=== PATIENT | male | born 1975 | race Hispanic/Latino ===

== ENCOUNTER 2017-06-14 03:01 | Emergency (ER) | payer SELFPAY | END 2017-06-14 04:00 | disposition home or self-care (01) | LOC: ERS 03:01 | DX: H60.501 Unspecified acute noninfective otitis externa, right ear (principal); F32.9 Major depressive disorder, single episode, unspecified; Z87.891 Personal history of nicotine dependence | CPT/HCPCS: 99282 ==

== ENCOUNTER 2017-07-19 14:17 | Emergency (ER) | payer SELFPAY ==
[2017-07-19 15:17] LABS: Bilirubin Moderate (Negative); Blood, Urine Negative (Negative); Glucose, Urine (Dipstick) Negative (Negative); Ketone, Urine 40 mg/dL (Negative); Nitrite Negative (Negative); Protein, Urine (Dipstick) 30 mg/dL (Neg-Trace); Urobilinogen 0.2 mg/dL (0.2-1.0)
[2017-07-19 15:19] LABS: Bacteria/HPF None Seen HPF (None Seen); Hyaline Casts/LPF 4-6 HYALINE CAST LPF (0-3 Hyaline); Squamous Epithelial 0-3 HPF (0-3)
[2017-07-19 15:29] LABS: Methamphetamine Not Detected (NotDetected)
[2017-07-19 15:30] LABS: Amphetamine Not Detected (NotDetected); Methadone Not Detected (NotDetected)
== END 2017-07-19 15:19 | disposition left against medical advice (07) ==
LOC: ERS 14:17
DX: Z53.21 Procedure and treatment not carried out due to patient leaving prior to being seen by health care provider (principal)
CPT/HCPCS: 80306; 81003; 81015; 99281

== ENCOUNTER 2018-03-29 00:23 | Emergency (ER) | payer BC, SELFPAY ==
[2018-03-29] MEDS ORDERED: Amoxicillin/Potassium Clav 875 MG TAB PO SCH (01:15)
[2018-03-29] MEDS ORDERED: Adacel (T-DAP) 0.5 ML VIAL ONE (02:25)
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
== END 2018-03-29 02:49 | disposition home or self-care (01) ==
LOC: ERS 00:23
DX: S09.90XA Unspecified injury of head, initial encounter (principal); S61.213A Laceration without foreign body of left middle finger without damage to nail, initial encounter; F32.9 Major depressive disorder, single episode, unspecified; Z87.891 Personal history of nicotine dependence; W21.89XA Striking against or struck by other sports equipment, initial encounter
CPT/HCPCS: 70450; 90471; 90715

== ENCOUNTER 2018-10-22 18:45 | Emergency (ER) | payer SELFPAY | END 2018-10-22 19:17 | disposition home or self-care (01) | LOC: ERS 18:45 | DX: N50.9 Disorder of male genital organs, unspecified (principal); F32.9 Major depressive disorder, single episode, unspecified; Z87.891 Personal history of nicotine dependence | CPT/HCPCS: 99283 ==

== ENCOUNTER 2019-03-26 21:39 | Emergency (ER) | payer SELFPAY ==
[2019-03-26] MEDS ORDERED: Ondansetron ODT 4 MG TAB ONE (22:18)
[2019-03-26] MEDS ORDERED: Ketorolac Tromethamine 30 MG/ML VIAL ONE (22:18)
--- NOTE | 2019-03-26 22:47 | CT ---
CT BRAIN WITHOUT CONTRAST; HISTORY: Headache. Dizziness. COMPARISON: 03/29/2018 FINDINGS: No evidence of infarct, hemorrhage, midline shift, or abnormal extraaxial fluid collections is seen. Ventricular size is stable. Basilar cisterns are patent. The bony calvarium is intact. Focal area s of lucency within the calvarium are stable, likely venous lakes. IMPRESSION: No CT evidence of acute intracranial process. Stable examination since 03/29/2018. POS: [facility]
[2019-03-26 22:59] LABS: #Basophils 0.1 thou/uL (0.0-0.2); #Eosinphils 0.2 thou/uL (0.0-0.7); #Lymphocytes 2.8 thou/uL (1.20-3.40); #Monocytes 0.5 thou/uL (0.11-0.59); #Neutrophils 4.5 thou/uL (1.40-6.50); %Basophils 0.6 % (0.0-1.0); %Eosinophils 2.8 % (0.0-10.0); %Monocytes 5.7 % (0.0-10.0); Hemoglobin 16.9 g/dL (14.0-18.0); Mean Corpuscular HGB CONC 33.6 g/dL (32.0-36.0); Mean Corpuscular Hemoglobin 31.9 pg (27.0-31.0); Mean Platelet Volume 12.7 fL (7.4-10.4); Platelet Count 153 thou/uL (130-400); Platelet Morphology Comment Appears Adequate; RBC Distribution Width 11.1 % (11.5-14.5); RBC Morphology Normal; White Blood Cell (WBC) Count 8.1 thou/uL (4.8-10.8)
[2019-03-26 23:00] LABS: ALT (SGPT) 20 U/L (8-55); AST (SGOT) 22 U/L (5-34); Albumin 4.5 g/dL (3.5-5.0); Alkaline Phosphatase 70 U/L (40-150); Anion Gap 13 mmol/L (10-20); BUN (Urea Nitrogen) 17 mg/dL (8.9-20.6); Bilirubin, Total 0.3 mg/dL (0.2-1.2); Calc. Creatinine Clearance 0 mL/min (70-130); Carbon Dioxide 24 mmol/L (22-29); Chloride 103 mmol/L (98-107); Estimated GFR-MDRD 83; Globulin 3.1 g/dL (2.4-3.5); Glucose 113 mg/dL (70-105); Potassium 3.9 mmol/L (3.5-5.1); Protein, Total 7.6 g/dL (6.0-8.3); Sodium 136 mmol/L (136-145)
== END 2019-03-27 01:19 | disposition home or self-care (01) ==
LOC: ERS 21:39
DX: R51 Headache (principal); F32.9 Major depressive disorder, single episode, unspecified; Z87.891 Personal history of nicotine dependence
CPT/HCPCS: 36415; 70450; 80053; 85025; 96372; J1885; Q0162

== ENCOUNTER 2020-12-08 12:13 | Emergency (ER) | payer BC, OTHER, SELFPAY ==
[2020-12-08 22:06] LABS: SARS-CoV-2 PCR by NAA DETECTED (NotDetected)
== END 2020-12-08 13:10 | disposition home or self-care (01) ==
LOC: ERS 12:13
DX: U07.1 COVID-19 (principal); Z87.891 Personal history of nicotine dependence
CPT/HCPCS: 87635; 99283; U0003; U0005

== ENCOUNTER 2020-12-12 11:03 | Inpatient (IN) | payer SELFPAY ==
[2020-12-12] MEDS ORDERED: Dexamethasone 10 MG/ML VIAL ONE (11:28)
[2020-12-12] MEDS ORDERED: cefTRIAXone\\ROCEPHIN 2 GM VIAL ONE (11:53)
[2020-12-12 12:10] LABS: #Lymphocytes 0.8 thou/uL (1.20-3.40); #Monocytes 0.2 thou/uL (0.11-0.59); %Basophils 0.2 % (0.0-1.0); %Eosinophils 0.2 % (0.0-10.0); %Lymphocytes 11.5 % (21.0-51.0); %Monocytes 3.1 % (0.0-10.0); Mean Corpuscular HGB CONC 32.7 g/dL (32.0-36.0); Mean Corpuscular Hemoglobin 31.1 pg (27.0-31.0); Mean Platelet Volume 12.1 fL (7.4-10.4); Platelet Count 129 thou/uL (130-400); Platelet Morphology Comment Appears Decreased; RBC Distribution Width 11.5 % (11.5-14.5); RBC Morphology Normal; Red Blood Cell (RBC) Count 5.13 mill/uL (4.70-6.10); White Blood Cell (WBC) Count 7.1 thou/uL (4.8-10.8)
[2020-12-12 13:14] LABS: ALT (SGPT) 26 U/L (8-55); AST (SGOT) 47 U/L (5-34); Albumin 3.4 g/dL (3.5-5.0); Alkaline Phosphatase 46 U/L (40-110); Anion Gap 16 mmol/L (10-20); BUN (Urea Nitrogen) 15 mg/dL (8.9-20.6); Bilirubin, Total 0.2 mg/dL (0.2-1.2); Calc. Creatinine Clearance 0 mL/min (70-130); Calcium 7.9 mg/dL (7.8-10.44); Carbon Dioxide 22 mmol/L (22-29); Chloride 98 mmol/L (98-107); Globulin 3.6 g/dL (2.4-3.5); Glucose 147 mg/dL (70-105); Potassium 4.2 mmol/L (3.5-5.1); Sodium 132 mmol/L (136-145)
[2020-12-12] MEDS ORDERED: Albuterol 200 PUFF (6.7GM INHALER) ONE (13:21)
[2020-12-12] MEDS ORDERED: Azithromycin 500 MG VIAL ONE (13:21)
[2020-12-12] MEDS ORDERED: Acetaminophen 650 MG Suppository PR PRN (13:43)
[2020-12-12] MEDS ORDERED: Ondansetron PF 4 MG/2 ML Vial IVP PRN (13:43)
[2020-12-12] MEDS ORDERED: Ondansetron ODT 4 MG TAB PO PRN (13:43)
[2020-12-12 14:10] LABS: Hemoglobin A1c 6.2 % (4.0-6.0)
[2020-12-12] MEDS ORDERED: Iopamidol-370 76% 500 ML 1 ML ONE (14:39)
[2020-12-12 15:04] LABS: CRP (Inflammatory) 26.31 mg/dL (= or < 0.5); Cardiac Risk 4.8 (Less than 4.5)
[2020-12-12 15:39] LABS: Lactic Acid 2.3 mmol/L (0.5-2.2)
[2020-12-12] MEDS ORDERED: REMDESIVIR (EUA) 200 MG in Sodium Chloride 0.9% 250 ML 210 ML IV SCH (16:00)
[2020-12-12] MEDS: Acetaminophen 325 MG TAB PO PRN (18:37)
[2020-12-13 02:49] LABS: Base Excess (BEa) 4.1 mEq/L (-2.0 to +3.0); CO2 Tension 34.8 mmHg (35.0-45.0); Calcium, Ionized (arterial) 1.13 mmol/L (1.12-1.30); Hemoglobin (Hb) 13.9 g/dL (14.0-18.0); Potassium - ABG Lab 4.08 mmol/L (3.70-5.30); pH, Arterial 7.51 (7.35-7.45)
[2020-12-13 02:56] LABS: O2 Tension (PaO2), arterial 46.4 mmHg (80.0-100.0)
[2020-12-13 02:57] LABS: Puncture Site RBA
[2020-12-13] MEDS: Acetaminophen 325 MG TAB PO PRN ×3 (04:23→21:14)
[2020-12-13] MEDS ORDERED: Dexamethasone 4 MG TAB PO SCH (08:00)
[2020-12-13] MEDS: Enoxaparin Sodium 40 MG/0.4 ML SYRINGE SC SCH (08:43)
[2020-12-13] MEDS: Zinc Sulfate 220 MG CAP PO SCH (08:43)
[2020-12-13] MEDS ORDERED: Ascorbic Acid 500 mg Chewable Tablet PO SCH (09:00)
[2020-12-13 11:22] LABS: #Lymphocytes 1.1 thou/uL (1.20-3.40); #Monocytes 0.4 thou/uL (0.11-0.59); #Neutrophils 5.6 thou/uL (1.40-6.50); %Basophils 0.1 % (0.0-1.0); %Eosinophils 0.1 % (0.0-10.0); %Lymphocytes 15.3 % (21.0-51.0); %Monocytes 5.5 % (0.0-10.0); Hemoglobin 14.8 g/dL (14.0-18.0); Mean Corpuscular HGB CONC 34.5 g/dL (32.0-36.0); Mean Corpuscular Hemoglobin 32.6 pg (27.0-31.0); Mean Corpuscular Volume 94.5 fL (78.0-98.0); Mean Platelet Volume 11.6 fL (7.4-10.4); Platelet Count 173 thou/uL (130-400); RBC Distribution Width 11.5 % (11.5-14.5); Red Blood Cell (RBC) Count 4.55 mill/uL (4.70-6.10); White Blood Cell (WBC) Count 7.2 thou/uL (4.8-10.8)
[2020-12-13 11:39] LABS: Anion Gap 18 mmol/L (10-20); BUN (Urea Nitrogen) 19 mg/dL (8.9-20.6); Calc. Creatinine Clearance 180 mL/min (70-130); Carbon Dioxide 21 mmol/L (22-29); Chloride 103 mmol/L (98-107); Glucose 136 mg/dL (70-105); Potassium 3.9 mmol/L (3.5-5.1); Sodium 138 mmol/L (136-145)
[2020-12-13] MEDS ORDERED: Ondansetron PF 4 MG/2 ML Vial IVP PRN (12:06)
[2020-12-13] MEDS ORDERED: Ondansetron PF 4 MG/2 ML Vial IVP SCH (12:15)
[2020-12-13] MEDS ORDERED: methylPREDNISolone Sod Succ 40 MG VIAL IVP SCH (12:30)
[2020-12-13] MEDS ORDERED: Thiamine 100 MG TAB PO SCH (12:30)
[2020-12-13] MEDS ORDERED: Cholecalciferol 1,000 UNITS (25 MCG) TAB PO SCH (13:00)
[2020-12-13] MEDS: REMDESIVIR (EUA) 100 MG in Sodium Chloride 0.9% 250 ML 230 ML IV SCH (16:45)
[2020-12-13] MEDS: methylPREDNISolone Sod Succ 40 MG VIAL IVP SCH ×2 (16:45→23:33)
[2020-12-13] MEDS: Temazepam 15 MG CAP PO PRN (21:14)
[2020-12-13] MEDS: Melatonin 3 MG TAB PO PRN (21:14)
[2020-12-13] MEDS: Ascorbic Acid 500 mg Chewable Tablet PO SCH (21:14)
[2020-12-14 03:51] LABS: #Eosinphils 0.1 thou/uL (0.0-0.7); #Lymphocytes 1.1 thou/uL (1.20-3.40); #Monocytes 0.3 thou/uL (0.11-0.59); #Neutrophils 5.1 thou/uL (1.40-6.50); %Basophils 0.1 % (0.0-1.0); %Eosinophils 1.6 % (0.0-10.0); %Lymphocytes 16.6 % (21.0-51.0); %Monocytes 5.1 % (0.0-10.0); %Neutrophils 76.6 % (42.0-75.0); Hemoglobin 13.9 g/dL (14.0-18.0); Mean Corpuscular HGB CONC 34.9 g/dL (32.0-36.0); Mean Corpuscular Hemoglobin 32.9 pg (27.0-31.0); Mean Corpuscular Volume 94.3 fL (78.0-98.0); Mean Platelet Volume 11.3 fL (7.4-10.4); Platelet Count 198 thou/uL (130-400); RBC Distribution Width 11.3 % (11.5-14.5); Red Blood Cell (RBC) Count 4.21 mill/uL (4.70-6.10); White Blood Cell (WBC) Count 6.6 thou/uL (4.8-10.8)
[2020-12-14 04:16] LABS: Anion Gap 18 mmol/L (10-20); BUN (Urea Nitrogen) 23 mg/dL (8.9-20.6); Calc. Creatinine Clearance 171 mL/min (70-130); Calcium 8.4 mg/dL (7.8-10.44); Carbon Dioxide 21 mmol/L (22-29); Chloride 103 mmol/L (98-107); Glucose 156 mg/dL (70-105); Potassium 3.9 mmol/L (3.5-5.1); Sodium 138 mmol/L (136-145)
[2020-12-14] MEDS: methylPREDNISolone Sod Succ 40 MG VIAL IVP SCH ×2 (05:44→11:40)
[2020-12-14] MEDS: Ascorbic Acid 500 mg Chewable Tablet PO SCH ×2 (07:55→19:41)
[2020-12-14] MEDS: Thiamine 100 MG TAB PO SCH (07:56)
[2020-12-14] MEDS: Zinc Sulfate 220 MG CAP PO SCH (07:56)
[2020-12-14] MEDS: Enoxaparin Sodium 40 MG/0.4 ML SYRINGE SC SCH (07:56)
[2020-12-14] MEDS: Cholecalciferol 1,000 UNITS (25 MCG) TAB PO SCH (07:56)
[2020-12-14] MEDS ORDERED: Ivermectin 3 MG TAB PO SCH (12:30)
[2020-12-14] MEDS ORDERED: methylPREDNISolone Sod Succ/PF 125 MG in Sodium Chloride 0.9% 250 ML 250 ML IVP SCH (13:00)
[2020-12-14] MEDS: methylPREDNISolone Sod Succ/PF 125 MG in Sodium Chloride 0.9% 250 ML 250 ML IVPB SCH (13:31)
[2020-12-14] MEDS: Acetaminophen 325 MG TAB PO PRN (15:34)
[2020-12-14] MEDS: REMDESIVIR (EUA) 100 MG in Sodium Chloride 0.9% 250 ML 230 ML IV SCH (15:53)
[2020-12-14] MEDS: Melatonin 3 MG TAB PO PRN (23:35)
[2020-12-14] MEDS: Temazepam 15 MG CAP PO PRN (23:35)
[2020-12-15 04:30] LABS: Anion Gap 14 mmol/L (10-20); BUN (Urea Nitrogen) 23 mg/dL (8.9-20.6); Calc. Creatinine Clearance 171 mL/min (70-130); Calcium 8.4 mg/dL (7.8-10.44); Carbon Dioxide 23 mmol/L (22-29); Chloride 105 mmol/L (98-107); Glucose 160 mg/dL (70-105); Potassium 4.1 mmol/L (3.5-5.1); Sodium 138 mmol/L (136-145)
[2020-12-15 05:19] LABS: Band 16 % (5-11); Hemoglobin 13.7 g/dL (14.0-18.0); Lymphocytes 10 % (21-51); MDiff Complete? YES; Mean Corpuscular HGB CONC 33.7 g/dL (32.0-36.0); Mean Corpuscular Hemoglobin 31.7 pg (27.0-31.0); Mean Corpuscular Volume 94.1 fL (78.0-98.0); Mean Platelet Volume 11.6 fL (7.4-10.4); Monocytes 10 % (0-10); Neutrophil 64 % (42-75); Platelet Count 219 thou/uL (130-400); RBC Distribution Width 11.4 % (11.5-14.5); Red Blood Cell (RBC) Count 4.33 mill/uL (4.70-6.10); White Blood Cell (WBC) Count 8.6 thou/uL (4.8-10.8)
[2020-12-15] MEDS ORDERED: Sodium Chloride 0.65% Nasal 44 ML BOT EA NARE PRN (07:46)
[2020-12-15] MEDS ORDERED: Albuterol 200 PUFF (6.7GM INHALER) INH PRN (07:53)
[2020-12-15] MEDS: Zinc Sulfate 220 MG CAP PO SCH (09:37)
[2020-12-15] MEDS: Famotidine 20 MG TAB PO SCH ×2 (09:37→20:42)
[2020-12-15] MEDS: Albuterol 200 PUFF (6.7GM INHALER) INH SCH ×4 (09:38→22:40)
[2020-12-15] MEDS: Cholecalciferol 1,000 UNITS (25 MCG) TAB PO SCH (09:38)
[2020-12-15] MEDS: Thiamine 100 MG TAB PO SCH (09:38)
[2020-12-15] MEDS: Ascorbic Acid 500 mg Chewable Tablet PO SCH ×2 (09:38→20:42)
[2020-12-15] MEDS: Multivit, Therapeutic 1 TAB PO SCH (09:38)
[2020-12-15] MEDS: guaiFENesin ER 600 MG TAB PO SCH ×2 (09:38→20:43)
[2020-12-15] MEDS: Enoxaparin Sodium 40 MG/0.4 ML SYRINGE SC SCH (09:41)
[2020-12-15] MEDS: methylPREDNISolone Sod Succ/PF 125 MG in Sodium Chloride 0.9% 250 ML 250 ML IVPB SCH (13:34)
[2020-12-15] MEDS: REMDESIVIR (EUA) 100 MG in Sodium Chloride 0.9% 250 ML 230 ML IV SCH (17:23)
[2020-12-15] MEDS: Acetaminophen 325 MG TAB PO PRN (17:26)
[2020-12-15] MEDS: Mometasone 200 MCG/Formoterol 5 MCG 120 PUFF INHALER INH SCH (18:51)
[2020-12-15] MEDS: Melatonin 3 MG TAB PO PRN (21:00)
[2020-12-16] MEDS: Albuterol 200 PUFF (6.7GM INHALER) INH SCH ×5 (03:43→20:57)
[2020-12-16 04:02] LABS: #Monocytes 0.9 thou/uL (0.11-0.59); #Neutrophils 8.1 thou/uL (1.40-6.50); %Basophils 0.2 % (0.0-1.0); %Eosinophils 0.2 % (0.0-10.0); %Lymphocytes 10.3 % (21.0-51.0); %Monocytes 8.6 % (0.0-10.0); %Neutrophils 80.7 % (42.0-75.0); Hemoglobin 13.7 g/dL (14.0-18.0); Mean Corpuscular HGB CONC 34.5 g/dL (32.0-36.0); Mean Corpuscular Hemoglobin 32.4 pg (27.0-31.0); Mean Corpuscular Volume 93.7 fL (78.0-98.0); Mean Platelet Volume 11.1 fL (7.4-10.4); Platelet Count 226 thou/uL (130-400); RBC Distribution Width 11.2 % (11.5-14.5); Red Blood Cell (RBC) Count 4.25 mill/uL (4.70-6.10); White Blood Cell (WBC) Count 10.1 thou/uL (4.8-10.8)
[2020-12-16 04:21] LABS: Anion Gap 14 mmol/L (10-20); BUN (Urea Nitrogen) 19 mg/dL (8.9-20.6); Calc. Creatinine Clearance 197 mL/min (70-130); Carbon Dioxide 20 mmol/L (22-29); Chloride 106 mmol/L (98-107); Glucose 151 mg/dL (70-105); Potassium 4.5 mmol/L (3.5-5.1); Sodium 135 mmol/L (136-145)
[2020-12-16] MEDS: Enoxaparin Sodium 40 MG/0.4 ML SYRINGE SC SCH (09:04)
[2020-12-16] MEDS: Multivit, Therapeutic 1 TAB PO SCH (09:05)
[2020-12-16] MEDS: guaiFENesin ER 600 MG TAB PO SCH ×2 (09:05→20:56)
[2020-12-16] MEDS: Thiamine 100 MG TAB PO SCH (09:05)
[2020-12-16] MEDS: Famotidine 20 MG TAB PO SCH ×2 (09:05→20:56)
[2020-12-16] MEDS: Cholecalciferol 1,000 UNITS (25 MCG) TAB PO SCH (09:05)
[2020-12-16] MEDS: Zinc Sulfate 220 MG CAP PO SCH (09:05)
[2020-12-16] MEDS: Ascorbic Acid 500 mg Chewable Tablet PO SCH ×2 (09:06→20:56)
[2020-12-16] MEDS: Mometasone 200 MCG/Formoterol 5 MCG 120 PUFF INHALER INH SCH ×2 (13:05→20:57)
[2020-12-16] MEDS: methylPREDNISolone Sod Succ/PF 125 MG in Sodium Chloride 0.9% 250 ML 250 ML IVPB SCH (13:47)
[2020-12-16] MEDS: REMDESIVIR (EUA) 100 MG in Sodium Chloride 0.9% 250 ML 230 ML IV SCH (15:58)
[2020-12-16] MEDS: Melatonin 3 MG TAB PO PRN (20:57)
[2020-12-17 04:08] LABS: #Lymphocytes 1.5 thou/uL (1.20-3.40); #Monocytes 0.7 thou/uL (0.11-0.59); #Neutrophils 12.7 thou/uL (1.40-6.50); %Eosinophils 0.2 % (0.0-10.0); %Lymphocytes 9.8 % (21.0-51.0); %Monocytes 4.9 % (0.0-10.0); %Neutrophils 85.1 % (42.0-75.0); Hemoglobin 14.5 g/dL (14.0-18.0); Mean Corpuscular HGB CONC 35.1 g/dL (32.0-36.0); Mean Corpuscular Hemoglobin 32.7 pg (27.0-31.0); Mean Corpuscular Volume 93.3 fL (78.0-98.0); Mean Platelet Volume 10.9 fL (7.4-10.4); Platelet Count 267 thou/uL (130-400); RBC Distribution Width 11.2 % (11.5-14.5); Red Blood Cell (RBC) Count 4.45 mill/uL (4.70-6.10); White Blood Cell (WBC) Count 14.9 thou/uL (4.8-10.8)
[2020-12-17 04:16] LABS: Phosphorus 3.5 mg/dL (2.3-4.7)
[2020-12-17 04:19] LABS: Anion Gap 14 mmol/L (10-20); BUN (Urea Nitrogen) 20 mg/dL (8.9-20.6); Calc. Creatinine Clearance 183 mL/min (70-130); Calcium 8.3 mg/dL (7.8-10.44); Carbon Dioxide 18 mmol/L (22-29); Chloride 107 mmol/L (98-107); Glucose 148 mg/dL (70-105); Magnesium 2.3 mg/dL (1.6-2.6); Potassium 4.8 mmol/L (3.5-5.1); Sodium 134 mmol/L (136-145)
[2020-12-17] MEDS: Albuterol 200 PUFF (6.7GM INHALER) INH SCH ×6 (07:50→23:40)
[2020-12-17] MEDS: Mometasone 200 MCG/Formoterol 5 MCG 120 PUFF INHALER INH SCH ×2 (08:48→21:14)
[2020-12-17] MEDS: Cholecalciferol 1,000 UNITS (25 MCG) TAB PO SCH (09:21)
[2020-12-17] MEDS: Multivit, Therapeutic 1 TAB PO SCH (09:21)
[2020-12-17] MEDS: Ascorbic Acid 500 mg Chewable Tablet PO SCH ×2 (09:21→21:15)
[2020-12-17] MEDS: Thiamine 100 MG TAB PO SCH (09:21)
[2020-12-17] MEDS: Famotidine 20 MG TAB PO SCH ×2 (09:22→21:15)
[2020-12-17] MEDS: Enoxaparin Sodium 40 MG/0.4 ML SYRINGE SC SCH (09:22)
[2020-12-17] MEDS: Zinc Sulfate 220 MG CAP PO SCH (09:22)
[2020-12-17] MEDS: guaiFENesin ER 600 MG TAB PO SCH ×2 (09:22→22:19)
[2020-12-17] MEDS: methylPREDNISolone Sod Succ/PF 125 MG in Sodium Chloride 0.9% 250 ML 250 ML IVPB SCH (13:44)
[2020-12-17] MEDS ORDERED: Diphenoxylate HCl/Atropine Tablet PO PRN (15:27)
[2020-12-17] MEDS: Acetaminophen 325 MG TAB PO PRN (16:14)
[2020-12-17] MEDS: Melatonin 3 MG TAB PO PRN (21:15)
[2020-12-18] MEDS: Temazepam 15 MG CAP PO PRN ×2 (00:44→21:18)
[2020-12-18] MEDS: Albuterol 200 PUFF (6.7GM INHALER) INH SCH ×6 (03:58→23:19)
[2020-12-18 04:19] LABS: Anion Gap 14 mmol/L (10-20); BUN (Urea Nitrogen) 18 mg/dL (8.9-20.6); CRP (Inflammatory) 0.87 mg/dL (= or < 0.5); Calc. Creatinine Clearance 183 mL/min (70-130); Calcium 8.5 mg/dL (7.8-10.44); Carbon Dioxide 20 mmol/L (22-29); Chloride 105 mmol/L (98-107); Glucose 199 mg/dL (70-105); Potassium 4.9 mmol/L (3.5-5.1); Sodium 134 mmol/L (136-145)
[2020-12-18 04:36] LABS: Mean Corpuscular HGB CONC 34.7 g/dL (32.0-36.0); Mean Corpuscular Hemoglobin 32.4 pg (27.0-31.0); Mean Corpuscular Volume 93.4 fL (78.0-98.0); Mean Platelet Volume 10.9 fL (7.4-10.4); Platelet Count 300 thou/uL (130-400); RBC Distribution Width 11.3 % (11.5-14.5); Red Blood Cell (RBC) Count 4.64 mill/uL (4.70-6.10); White Blood Cell (WBC) Count 16.6 thou/uL (4.8-10.8)
[2020-12-18 05:15] LABS: Band 9 % (5-11); Lymphocytes 4 % (21-51); MDiff Complete? YES; Monocytes 2 % (0-10); Myelocyte 2 % (0-0); Neutrophil 83 % (42-75)
[2020-12-18] MEDS: Mometasone 200 MCG/Formoterol 5 MCG 120 PUFF INHALER INH SCH ×2 (06:30→18:20)
[2020-12-18] MEDS: Enoxaparin Sodium 40 MG/0.4 ML SYRINGE SC SCH (09:15)
[2020-12-18] MEDS: Multivit, Therapeutic 1 TAB PO SCH (09:16)
[2020-12-18] MEDS: guaiFENesin ER 600 MG TAB PO SCH ×2 (09:16→21:18)
[2020-12-18] MEDS: Thiamine 100 MG TAB PO SCH (09:16)
[2020-12-18] MEDS: Ascorbic Acid 500 mg Chewable Tablet PO SCH ×2 (09:16→21:18)
[2020-12-18] MEDS: Zinc Sulfate 220 MG CAP PO SCH (09:16)
[2020-12-18] MEDS: Cholecalciferol 1,000 UNITS (25 MCG) TAB PO SCH (09:16)
[2020-12-18] MEDS: Famotidine 20 MG TAB PO SCH ×2 (09:16→21:18)
[2020-12-18] MEDS ORDERED: VANCOMYCIN 1.25 GM/250 ML BAG IVPB SCH (10:30)
[2020-12-18] MEDS ORDERED: Meropenem 1 GM in Sodium Chloride 0.9% 100 ML IVPB SCH (11:00)
[2020-12-18] MEDS: VANCOMYCIN 2 GRAM/400 ML BAG 2 GM in Premix Bag 1 BAG IVPB SCH ×2 (11:33→23:00)
[2020-12-18] MEDS: MEROPENEM 1 GM/50 ML 1 GM in Premix Bag 1 BAG IVPB SCH ×2 (11:34→18:20)
[2020-12-18] MEDS: methylPREDNISolone Sod Succ/PF 125 MG in Sodium Chloride 0.9% 250 ML 250 ML IVPB SCH (14:41)
[2020-12-19] MEDS: Albuterol 200 PUFF (6.7GM INHALER) INH SCH ×6 (02:45→23:30)
[2020-12-19] MEDS: MEROPENEM 1 GM/50 ML 1 GM in Premix Bag 1 BAG IVPB SCH ×3 (03:03→18:04)
[2020-12-19 04:05] LABS: Hemoglobin 15.8 g/dL (14.0-18.0); Mean Corpuscular HGB CONC 33.1 g/dL (32.0-36.0); Mean Corpuscular Volume 93.6 fL (78.0-98.0); Mean Platelet Volume 11.2 fL (7.4-10.4); Platelet Count 293 thou/uL (130-400); RBC Distribution Width 11.5 % (11.5-14.5); Red Blood Cell (RBC) Count 5.09 mill/uL (4.70-6.10); White Blood Cell (WBC) Count 17.7 thou/uL (4.8-10.8)
[2020-12-19 04:16] LABS: Anion Gap 15 mmol/L (10-20); BUN (Urea Nitrogen) 17 mg/dL (8.9-20.6); Calc. Creatinine Clearance 178 mL/min (70-130); Calcium 8.5 mg/dL (7.8-10.44); Carbon Dioxide 17 mmol/L (22-29); Chloride 106 mmol/L (98-107); Glucose 226 mg/dL (70-105); Potassium 4.8 mmol/L (3.5-5.1); Sodium 133 mmol/L (136-145)
[2020-12-19 05:04] LABS: Lymphocytes 6 % (21-51); MDiff Complete? YES; Neutrophil 94 % (42-75); Platelet Morphology Comment Appears Adequate
[2020-12-19] MEDS: Mometasone 200 MCG/Formoterol 5 MCG 120 PUFF INHALER INH SCH ×2 (06:28→18:25)
[2020-12-19] MEDS: guaiFENesin ER 600 MG TAB PO SCH ×2 (09:26→20:50)
[2020-12-19] MEDS: Thiamine 100 MG TAB PO SCH (09:26)
[2020-12-19] MEDS: Enoxaparin Sodium 40 MG/0.4 ML SYRINGE SC SCH ×2 (09:27→20:50)
[2020-12-19] MEDS: Ascorbic Acid 500 mg Chewable Tablet PO SCH ×2 (09:28→20:49)
[2020-12-19] MEDS: Multivit, Therapeutic 1 TAB PO SCH (09:29)
[2020-12-19] MEDS: Zinc Sulfate 220 MG CAP PO SCH (09:29)
[2020-12-19] MEDS: Cholecalciferol 1,000 UNITS (25 MCG) TAB PO SCH (09:29)
[2020-12-19] MEDS: Famotidine 20 MG TAB PO SCH ×2 (09:29→20:49)
[2020-12-19] MEDS: VANCOMYCIN 2 GRAM/400 ML BAG 2 GM in Premix Bag 1 BAG IVPB SCH (12:56)
[2020-12-19] MEDS: methylPREDNISolone Sod Succ/PF 125 MG in Sodium Chloride 0.9% 250 ML 250 ML IVPB SCH (13:07)
[2020-12-19] MEDS: Ivermectin 3 MG TAB PO SCH (14:57)
[2020-12-19] MEDS: Temazepam 15 MG CAP PO PRN (20:49)
[2020-12-19] MEDS: Melatonin 3 MG TAB PO PRN (20:50)
[2020-12-19 22:26] LABS: Vancomycin, Trough 10.5 ug/mL
[2020-12-19] MEDS ORDERED: Artificial Tear Sol 15 ML BOT EA EYE PRN (23:28)
[2020-12-19] MEDS: Vancomycin 1.5 GRAM/300 ML BAG 1.5 GM in Premix Bag 1 BAG IVPB SCH (23:29)
[2020-12-19] MEDS ORDERED: Tetrahydrozoline 0.05% OPTH 15 ML BOT EA EYE SCH (23:30)
[2020-12-20] MEDS ORDERED: Loratadine 10 MG TAB PO SCH (01:45)
[2020-12-20] MEDS: Albuterol 200 PUFF (6.7GM INHALER) INH SCH ×6 (01:52→20:55)
[2020-12-20] MEDS: MEROPENEM 1 GM/50 ML 1 GM in Premix Bag 1 BAG IVPB SCH ×3 (02:58→18:09)
[2020-12-20 03:39] LABS: #Lymphocytes 0.6 thou/uL (1.20-3.40); #Monocytes 0.4 thou/uL (0.11-0.59); #Neutrophils 11.1 thou/uL (1.40-6.50); %Basophils 0.1 % (0.0-1.0); %Eosinophils 0.2 % (0.0-10.0); %Lymphocytes 4.7 % (21.0-51.0); %Monocytes 2.9 % (0.0-10.0); %Neutrophils 92.1 % (42.0-75.0); Hemoglobin 15.7 g/dL (14.0-18.0); Mean Corpuscular HGB CONC 33.1 g/dL (32.0-36.0); Mean Corpuscular Hemoglobin 31.3 pg (27.0-31.0); Mean Corpuscular Volume 94.6 fL (78.0-98.0); Mean Platelet Volume 11.1 fL (7.4-10.4); Platelet Count 273 thou/uL (130-400); RBC Distribution Width 11.7 % (11.5-14.5); Red Blood Cell (RBC) Count 5.01 mill/uL (4.70-6.10)
[2020-12-20 04:02] LABS: Anion Gap 18 mmol/L (10-20); BUN (Urea Nitrogen) 18 mg/dL (8.9-20.6); CRP (Inflammatory) Less than 0.50 mg/dL (= or < 0.5); Calc. Creatinine Clearance 150 mL/min (70-130); Calcium 8.4 mg/dL (7.8-10.44); Carbon Dioxide 15 mmol/L (22-29); Chloride 104 mmol/L (98-107); Glucose 442 mg/dL (70-105); Potassium 4.5 mmol/L (3.5-5.1); Sodium 132 mmol/L (136-145)
[2020-12-20] MEDS: Mometasone 200 MCG/Formoterol 5 MCG 120 PUFF INHALER INH SCH ×2 (05:46→18:10)
[2020-12-20] MEDS: Acetaminophen 325 MG TAB PO PRN (05:54)
[2020-12-20] MEDS ORDERED: Tetrahydrozoline 0.05% OPTH 15 ML BOT EA EYE SCH (09:00)
[2020-12-20] MEDS: Cholecalciferol 1,000 UNITS (25 MCG) TAB PO SCH (09:23)
[2020-12-20] MEDS: Famotidine 20 MG TAB PO SCH ×2 (09:23→20:55)
[2020-12-20] MEDS: Ascorbic Acid 500 mg Chewable Tablet PO SCH ×2 (09:23→20:55)
[2020-12-20] MEDS: Vancomycin 1.5 GRAM/300 ML BAG 1.5 GM in Premix Bag 1 BAG IVPB SCH ×2 (09:23→16:44)
[2020-12-20] MEDS: Zinc Sulfate 220 MG CAP PO SCH (09:23)
[2020-12-20] MEDS: Enoxaparin Sodium 40 MG/0.4 ML SYRINGE SC SCH ×2 (09:23→20:55)
[2020-12-20] MEDS: guaiFENesin ER 600 MG TAB PO SCH ×2 (09:24→20:55)
[2020-12-20] MEDS: Thiamine 100 MG TAB PO SCH (09:24)
[2020-12-20] MEDS: Multivit, Therapeutic 1 TAB PO SCH (09:24)
[2020-12-20 11:35] LABS: ALT (SGPT) 34 U/L (8-55); AST (SGOT) 16 U/L (5-34); Albumin 3.5 g/dL (3.5-5.0); Alkaline Phosphatase 74 U/L (40-110); Bilirubin, Direct 0.3 mg/dL (0.1-0.3); Bilirubin, Total 0.6 mg/dL (0.2-1.2); Protein, Total 6.9 g/dL (6.0-8.3)
[2020-12-20] MEDS: methylPREDNISolone Sod Succ/PF 125 MG in Sodium Chloride 0.9% 250 ML 250 ML IVPB SCH (13:51)
[2020-12-20] MEDS: Ivermectin 3 MG TAB PO SCH (13:59)
[2020-12-20] MEDS: methylPREDNISolone Sod Succ/PF 125 MG/2 ML VIAL IVP SCH ×2 (13:59→20:55)
[2020-12-20 23:44] LABS: Vancomycin, Trough 11.5 ug/mL
[2020-12-21] MEDS: VANCOMYCIN 2 GRAM/400 ML BAG 2 GM in Premix Bag 1 BAG IVPB SCH ×3 (00:22→16:20)
[2020-12-21] MEDS: Albuterol 200 PUFF (6.7GM INHALER) INH SCH ×6 (02:27→22:45)
[2020-12-21] MEDS: MEROPENEM 1 GM/50 ML 1 GM in Premix Bag 1 BAG IVPB SCH ×3 (03:39→19:59)
[2020-12-21 05:48] LABS: #Lymphocytes 0.8 thou/uL (1.20-3.40); #Monocytes 0.4 thou/uL (0.11-0.59); #Neutrophils 10.8 thou/uL (1.40-6.50); %Eosinophils 0.3 % (0.0-10.0); %Lymphocytes 6.2 % (21.0-51.0); %Monocytes 3.5 % (0.0-10.0); Mean Corpuscular HGB CONC 34.3 g/dL (32.0-36.0); Mean Corpuscular Hemoglobin 32.2 pg (27.0-31.0); Mean Corpuscular Volume 93.9 fL (78.0-98.0); Mean Platelet Volume 10.9 fL (7.4-10.4); Platelet Count 260 thou/uL (130-400); RBC Distribution Width 11.8 % (11.5-14.5); Red Blood Cell (RBC) Count 4.67 mill/uL (4.70-6.10)
[2020-12-21] MEDS: methylPREDNISolone Sod Succ/PF 125 MG/2 ML VIAL IVP SCH ×3 (06:00→20:07)
[2020-12-21] MEDS: Mometasone 200 MCG/Formoterol 5 MCG 120 PUFF INHALER INH SCH ×2 (06:00→19:59)
[2020-12-21 06:11] LABS: Anion Gap 12 mmol/L (10-20); BUN (Urea Nitrogen) 17 mg/dL (8.9-20.6); Calc. Creatinine Clearance 170 mL/min (70-130); Calcium 8.4 mg/dL (7.8-10.44); Carbon Dioxide 22 mmol/L (22-29); Chloride 106 mmol/L (98-107); Glucose 351 mg/dL (70-105); Potassium 4.6 mmol/L (3.5-5.1); Sodium 135 mmol/L (136-145)
[2020-12-21] MEDS: Famotidine 20 MG TAB PO SCH ×2 (08:17→20:06)
[2020-12-21] MEDS: Zinc Sulfate 220 MG CAP PO SCH (08:17)
[2020-12-21] MEDS: Ascorbic Acid 500 mg Chewable Tablet PO SCH ×2 (08:17→20:06)
[2020-12-21] MEDS: Enoxaparin Sodium 40 MG/0.4 ML SYRINGE SC SCH ×2 (08:18→20:07)
[2020-12-21] MEDS: Cholecalciferol 1,000 UNITS (25 MCG) TAB PO SCH (08:18)
[2020-12-21] MEDS: Thiamine 100 MG TAB PO SCH (08:18)
[2020-12-21] MEDS: guaiFENesin ER 600 MG TAB PO SCH ×2 (08:18→20:06)
[2020-12-21] MEDS: Multivit, Therapeutic 1 TAB PO SCH (08:18)
[2020-12-21] MEDS: Ivermectin 3 MG TAB PO SCH (15:52)
[2020-12-21 23:30] LABS: Vancomycin, Trough 14.8 ug/mL
[2020-12-22] MEDS: VANCOMYCIN 2 GRAM/400 ML BAG 2 GM in Premix Bag 1 BAG IVPB SCH ×2 (00:04→09:45)
[2020-12-22] MEDS: Acetaminophen 325 MG TAB PO PRN (00:04)
[2020-12-22] MEDS: Albuterol 200 PUFF (6.7GM INHALER) INH SCH ×6 (01:57→22:01)
[2020-12-22] MEDS: MEROPENEM 1 GM/50 ML 1 GM in Premix Bag 1 BAG IVPB SCH ×2 (02:47→13:29)
[2020-12-22] MEDS: methylPREDNISolone Sod Succ/PF 125 MG/2 ML VIAL IVP SCH ×3 (04:57→21:08)
[2020-12-22] MEDS: Mometasone 200 MCG/Formoterol 5 MCG 120 PUFF INHALER INH SCH ×2 (04:58→18:56)
[2020-12-22] MEDS: Cholecalciferol 1,000 UNITS (25 MCG) TAB PO SCH (09:45)
[2020-12-22] MEDS: Thiamine 100 MG TAB PO SCH (09:45)
[2020-12-22] MEDS: Ascorbic Acid 500 mg Chewable Tablet PO SCH ×2 (09:45→21:07)
[2020-12-22] MEDS: guaiFENesin ER 600 MG TAB PO SCH ×2 (09:46→21:08)
[2020-12-22] MEDS: Multivit, Therapeutic 1 TAB PO SCH (09:46)
[2020-12-22] MEDS: Zinc Sulfate 220 MG CAP PO SCH (09:46)
[2020-12-22] MEDS: Enoxaparin Sodium 40 MG/0.4 ML SYRINGE SC SCH ×2 (09:46→21:08)
[2020-12-22] MEDS: Famotidine 20 MG TAB PO SCH ×2 (09:46→21:08)
[2020-12-22] MEDS: Guaifenesin DM 100-10/5 ML UDCUP PO PRN ×2 (10:58→18:18)
[2020-12-22] MEDS: Ivermectin 3 MG TAB PO SCH (13:59)
[2020-12-22] MEDS: Temazepam 15 MG CAP PO PRN (23:18)
[2020-12-23] MEDS: Albuterol 200 PUFF (6.7GM INHALER) INH SCH ×6 (03:19→22:13)
[2020-12-23] MEDS: methylPREDNISolone Sod Succ/PF 125 MG/2 ML VIAL IVP SCH ×3 (05:19→21:01)
[2020-12-23] MEDS: Mometasone 200 MCG/Formoterol 5 MCG 120 PUFF INHALER INH SCH ×2 (06:02→18:55)
[2020-12-23] MEDS: Thiamine 100 MG TAB PO SCH (07:37)
[2020-12-23] MEDS: Multivit, Therapeutic 1 TAB PO SCH (07:37)
[2020-12-23] MEDS: Cholecalciferol 1,000 UNITS (25 MCG) TAB PO SCH (07:37)
[2020-12-23] MEDS: Zinc Sulfate 220 MG CAP PO SCH (07:37)
[2020-12-23] MEDS: guaiFENesin ER 600 MG TAB PO SCH ×2 (07:38→20:58)
[2020-12-23] MEDS: Famotidine 20 MG TAB PO SCH ×2 (07:38→20:58)
[2020-12-23] MEDS: Ascorbic Acid 500 mg Chewable Tablet PO SCH ×2 (07:38→20:58)
[2020-12-23] MEDS: Enoxaparin Sodium 40 MG/0.4 ML SYRINGE SC SCH ×2 (07:39→20:59)
[2020-12-23 11:28] VITALS: BMI 30.4
[2020-12-23] MEDS: Melatonin 3 MG TAB PO PRN (20:59)
[2020-12-23] MEDS: Guaifenesin DM 100-10/5 ML UDCUP PO PRN ×2 (20:59)
[2020-12-24] MEDS: Albuterol 200 PUFF (6.7GM INHALER) INH SCH ×4 (02:19→14:12)
[2020-12-24] MEDS: methylPREDNISolone Sod Succ/PF 125 MG/2 ML VIAL IVP SCH ×2 (05:36→12:57)
[2020-12-24] MEDS: Mometasone 200 MCG/Formoterol 5 MCG 120 PUFF INHALER INH SCH (06:31)
[2020-12-24] MEDS: Thiamine 100 MG TAB PO SCH (08:25)
[2020-12-24] MEDS: Famotidine 20 MG TAB PO SCH (08:25)
[2020-12-24] MEDS: Cholecalciferol 1,000 UNITS (25 MCG) TAB PO SCH (08:25)
[2020-12-24] MEDS: guaiFENesin ER 600 MG TAB PO SCH (08:25)
[2020-12-24] MEDS: Multivit, Therapeutic 1 TAB PO SCH (08:25)
[2020-12-24] MEDS: Ascorbic Acid 500 mg Chewable Tablet PO SCH (08:26)
[2020-12-24] MEDS: Zinc Sulfate 220 MG CAP PO SCH (08:26)
[2020-12-24] MEDS: Enoxaparin Sodium 40 MG/0.4 ML SYRINGE SC SCH (08:26)
[2020-12-24] MEDS ORDERED: Temazepam 15 MG CAP PO PRN (11:42)
[2020-12-24 17:30] VITALS: BP 159/92; TEMP 97.9
== END 2020-12-24 18:25 | disposition home or self-care (01) | DRG 871 ==
LOC: ERS 11:03 → T4-B 13:27 → IMCU/EMU 12-13 04:10 → T4-A 12-20 15:53
PROVIDERS: ADMIT Student in an Organized Health Care Education/Training Program; ATTEND Internal Medicine
PROC: XW13325 Transfusion of Convalescent Plasma (Nonautologous) into Peripheral Vein, Percutaneous Approach, New Technology Group 5 (ICD-10-PCS; principal; 2020-12-12)
PROC: XW033E5 Introduction of Remdesivir Anti-infective into Peripheral Vein, Percutaneous Approach, New Technology Group 5 (ICD-10-PCS; 2020-12-12)
PROC: 8E0ZXY6 Isolation (ICD-10-PCS; 2020-12-12)
PROC: 5A0955A Assistance with Respiratory Ventilation, Greater than 96 Consecutive Hours, High Flow/Velocity Cannula (ICD-10-PCS; 2020-12-12)
DX: A41.89 Other specified sepsis (principal); U07.1 COVID-19; J12.82 Pneumonia due to coronavirus disease 2019; J96.01 Acute respiratory failure with hypoxia; E87.1 Hypo-osmolality and hyponatremia; E87.2 Acidosis; D69.6 Thrombocytopenia, unspecified; R65.20 Severe sepsis without septic shock; D50.9 Iron deficiency anemia, unspecified; E11.9 Type 2 diabetes mellitus without complications; E66.9 Obesity, unspecified; Z68.30 Body mass index [BMI] 30.0-30.9, adult; Z87.891 Personal history of nicotine dependence; Z83.1 Family history of other infectious and parasitic diseases; Z79.899 Other long term (current) drug therapy
CPT/HCPCS: 36415; 36430; 36600; 71045; 71275; 80048; 80053; 80061; 80076; 80202; 82140; 82728; 82805; 83036; 83605; 83735; 84100; 84484; 85025; 85379; 85652; 86140; 86850; 86900; 86901; 87040; 87086; 93005; 94664; 96365; 96366; 96375; J0456; J0696; J1100; J1650; J2185; J2405; J2920; J2930; J3370; J7050; J8540; P9017; Q9967

== ENCOUNTER 2021-01-26 21:05 | Emergency (ER) | payer OTHER ==
[2021-01-26] MEDS ORDERED: Ketorolac Tromethamine 30 MG/ML VIAL ONE (21:25)
[2021-01-26] MEDS ORDERED: Dexamethasone 10 MG/ML VIAL ONE (21:25)
== END 2021-01-26 21:46 | disposition home or self-care (01) ==
LOC: ERS 21:05
DX: J02.9 Acute pharyngitis, unspecified (principal); Z87.891 Personal history of nicotine dependence; Z86.16 Personal history of COVID-19
CPT/HCPCS: 71045; 96372; J1100; J1885

== ENCOUNTER 2021-03-25 10:30 | Emergency (ER) | payer OTHER, SELFPAY ==
[2021-03-25 11:39] LABS: #Basophils 0.1 thou/uL (0.0-0.2); #Eosinphils 0.5 thou/uL (0.0-0.7); #Lymphocytes 1.9 thou/uL (1.20-3.40); #Neutrophils 6.4 thou/uL (1.40-6.50); %Basophils 0.8 % (0.0-1.0); %Eosinophils 5.2 % (0.0-10.0); %Lymphocytes 19.4 % (21.0-51.0); %Monocytes 9.6 % (0.0-10.0); %Neutrophils 64.9 % (42.0-75.0); Hemoglobin 14.5 g/dL (14.0-18.0); Mean Corpuscular HGB CONC 34.6 g/dL (32.0-36.0); Mean Corpuscular Hemoglobin 33.1 pg (27.0-31.0); Mean Corpuscular Volume 95.4 fL (78.0-98.0); Mean Platelet Volume 12.3 fL (7.4-10.4); Platelet Count 157 thou/uL (130-400); White Blood Cell (WBC) Count 9.8 thou/uL (4.8-10.8)
[2021-03-25 11:53] LABS: ALT (SGPT) 25 U/L (8-55); AST (SGOT) 21 U/L (5-34); Alkaline Phosphatase 59 U/L (40-110); Anion Gap 16 mmol/L (10-20); BUN (Urea Nitrogen) 7 mg/dL (8.9-20.6); Bilirubin, Total 0.3 mg/dL (0.2-1.2); CK (CPK) 103 U/L (30-200); Calc. Creatinine Clearance 0 mL/min (70-130); Calcium 8.8 mg/dL (7.8-10.44); Carbon Dioxide 19 mmol/L (22-29); Chloride 107 mmol/L (98-107); Globulin 2.6 g/dL (2.4-3.5); Glucose 125 mg/dL (70-105); Lipase 18 U/L (8-78); Protein, Total 6.6 g/dL (6.0-8.3); Sodium 138 mmol/L (136-145)
== END 2021-03-25 13:00 | disposition home or self-care (01) ==
LOC: ERS 10:30
DX: R05 Cough (principal); B94.8 Sequelae of other specified infectious and parasitic diseases; Z79.82 Long term (current) use of aspirin; Z87.891 Personal history of nicotine dependence
CPT/HCPCS: 36415; 71045; 80053; 82550; 83690; 84484; 85025; 85379; 93005

== ENCOUNTER 2021-05-26 18:01 | Emergency (ER) | payer OTHER, SELFPAY ==
[2021-05-26 19:57] LABS: Bacteria/HPF None Seen HPF (None Seen); Bilirubin Negative (Negative); Blood, Urine Trace (Negative); Clarity Turbid (Clear); Glucose, Urine (Dipstick) Normal (Negative); Ketone, Urine Negative (Negative); Leukocyte 500 Leu/uL (Negative); Nitrite Negative (Negative); Protein, Urine (Dipstick) 20 mg/dL (Neg-Trace); RBC/HPF 21-50 HPF (0-3); Specific Gravity, Urine 1.034 (1.002-1.036); Squamous Epithelial None Seen HPF (0-3); WBC/HPF Greater than 50 HPF (0-3)
[2021-05-26] MEDS ORDERED: Acetaminophen 500 MG TAB ONE (20:11)
[2021-05-26] MEDS ORDERED: cefTRIAXone\\ROCEPHIN 1 GM VIAL ONE (20:11)
[2021-05-26 20:14] LABS: ALT (SGPT) 23 U/L (8-55); AST (SGOT) 12 U/L (5-34); Albumin 4.3 g/dL (3.5-5.0); Alkaline Phosphatase 88 U/L (40-110); Anion Gap 14 mmol/L (10-20); BUN (Urea Nitrogen) 14 mg/dL (8.9-20.6); Bilirubin, Total 0.4 mg/dL (0.2-1.2); Calc. Creatinine Clearance 0 mL/min (70-130); Calcium 9.3 mg/dL (7.8-10.44); Carbon Dioxide 23 mmol/L (22-29); Chloride 106 mmol/L (98-107); Globulin 3.2 g/dL (2.4-3.5); Glucose 106 mg/dL (70-105); Potassium 4.2 mmol/L (3.5-5.1); Protein, Total 7.5 g/dL (6.0-8.3); Sodium 139 mmol/L (136-145)
[2021-05-26 20:15] LABS: #Basophils 0.1 thou/uL (0.0-0.2); #Eosinphils 0.1 thou/uL (0.0-0.7); #Lymphocytes 4.3 thou/uL (1.20-3.40); #Neutrophils 7.3 thou/uL (1.40-6.50); %Basophils 0.6 % (0.0-1.0); %Eosinophils 0.7 % (0.0-10.0); %Lymphocytes 33.6 % (21.0-51.0); %Monocytes 7.9 % (0.0-10.0); %Neutrophils 57.2 % (42.0-75.0); Hemoglobin 15.4 g/dL (14.0-18.0); Mean Corpuscular HGB CONC 34.4 g/dL (32.0-36.0); Mean Corpuscular Hemoglobin 31.7 pg (27.0-31.0); Mean Platelet Volume 12.4 fL (7.4-10.4); Platelet Count 165 thou/uL (130-400); RBC Distribution Width 12.2 % (11.5-14.5); Red Blood Cell (RBC) Count 4.88 mill/uL (4.70-6.10); White Blood Cell (WBC) Count 12.8 thou/uL (4.8-10.8)
[2021-05-26] MEDS ORDERED: Azithromycin 250 MG TAB ONE (21:05)
== END 2021-05-26 21:10 | disposition home or self-care (01) ==
LOC: ERS 18:01
DX: N39.0 Urinary tract infection, site not specified (principal); R36.9 Urethral discharge, unspecified; R73.03 Prediabetes; Z87.891 Personal history of nicotine dependence
CPT/HCPCS: 36415; 74176; 80053; 81003; 81015; 83605; 85025; 87086; 96365; J0696

== ENCOUNTER 2021-08-21 12:44 | Emergency (ER) | payer OTHER, SELFPAY ==
[2021-08-21] MEDS ORDERED: Ketorolac Tromethamine 30 MG/ML VIAL ONE (13:13)
== END 2021-08-21 13:42 | disposition home or self-care (01) ==
LOC: ERS 12:44
DX: H60.91 Unspecified otitis externa, right ear (principal); Z87.891 Personal history of nicotine dependence
CPT/HCPCS: 96372; 99282; J1885

== ENCOUNTER 2022-03-06 21:37 | Emergency (ER) | payer SELFPAY | END 2022-03-06 22:15 | LOC: ERS 21:37 | DX: T40.711A Poisoning by cannabis, accidental (unintentional), initial encounter (principal) | CPT/HCPCS: 99283 ==

== ENCOUNTER 2022-03-09 13:25 | Emergency (ER) | payer SELFPAY | END 2022-03-09 14:10 | disposition home or self-care (01) | LOC: ERS 13:25 | DX: R05.9 Cough, unspecified (principal); R53.83 Other fatigue; Z20.822 Contact with and (suspected) exposure to COVID-19 | CPT/HCPCS: 99283; U0003; U0005 ==